=== PATIENT | male | born 1960 | race African-American/Black ===

== ENCOUNTER 2020-09-26 10:51 | Emergency (ER) | payer SELFPAY ==
[2020-09-26 11:16] LABS: #Basophils 0.1 thou/uL (0.0-0.2); #Eosinphils 0.2 thou/uL (0.0-0.7); #Lymphocytes 1.3 thou/uL (1.20-3.40); #Monocytes 0.4 thou/uL (0.11-0.59); #Neutrophils 3.4 thou/uL (1.40-6.50); %Basophils 1.4 % (0.0-1.0); %Eosinophils 4.5 % (0.0-10.0); %Lymphocytes 24.1 % (21.0-51.0); %Monocytes 7.3 % (0.0-10.0); %Neutrophils 62.7 % (42.0-75.0); Hemoglobin 15.7 g/dL (14.0-18.0); Mean Corpuscular HGB CONC 33.2 g/dL (32.0-36.0); Mean Corpuscular Hemoglobin 31.7 pg (27.0-31.0); Mean Corpuscular Volume 95.5 fL (78.0-98.0); Mean Platelet Volume 8.6 fL (7.4-10.4); Platelet Count 207 thou/uL (130-400); RBC Distribution Width 12.3 % (11.5-14.5); Red Blood Cell (RBC) Count 4.95 mill/uL (4.70-6.10); White Blood Cell (WBC) Count 5.3 thou/uL (4.8-10.8)
[2020-09-26 11:33] LABS: ALT (SGPT) 22 U/L (8-55); AST (SGOT) 28 U/L (5-34); Albumin 4.1 g/dL (3.4-4.8); Alkaline Phosphatase 102 U/L (40-110); Anion Gap 17 mmol/L (10-20); BUN (Urea Nitrogen) 14 mg/dL (8.4-25.7); Bilirubin, Total 0.5 mg/dL (0.2-1.2); Calc. Creatinine Clearance 0 mL/min (70-130); Carbon Dioxide 22 mmol/L (23-31); Chloride 105 mmol/L (98-107); Globulin 3.6 g/dL (2.4-3.5); Glucose 105 mg/dL (80-115); Lipase 23 U/L (8-78); Protein, Total 7.7 g/dL (5.8-8.1); Sodium 140 mmol/L (136-145)
[2020-09-26] MEDS ORDERED: Aspirin Chewable 81 MG TAB ONE (12:36)
--- NOTE | 2020-09-26 13:30 | RAD ---
PORTABLE CHEST: Date: 09/26/2020 Comparison made with the 08/14/2019 study. The heart is normal in size. There is no vascular congestion or edema. No effusions. Some minor linea r streaking over the left hemidiaphragm is probably subsegmental atelectasis. The lungs are otherwise clear. IMPRESSION: No acute findings. POS: HOME
--- NOTE | 2020-09-26 13:34 | CT ---
CT OF THE BRAIN WITHOUT CONTRAST: DATE: 09/26/2020. COMPARISON: Comparison is made with the prior study of 03/02/2015. FINDINGS: The ventricles are normal in size with no shift. No intracranial bleeding, mass, edema, or sign of a cute stroke was found. There is mucosal thickening in the left maxillary sinus. The other visible p aranasal sinuses and mastoid air cells are clear. The skull was normal in appearance. IMPRESSION: 1. No acute intracranial findings. 2. Chronic left maxillary sinusitis. Preliminary called to Dr. Ramirez at 1132 on 09/26/2020. CODE CR POS: HOME
== END 2020-09-26 13:27 | disposition short-term general hospital (02) ==
LOC: BURERS 10:51
DX: I20.0 Unstable angina (principal); G45.9 Transient cerebral ischemic attack, unspecified; Z79.899 Other long term (current) drug therapy; I10 Essential (primary) hypertension; F17.210 Nicotine dependence, cigarettes, uncomplicated
CPT/HCPCS: 70450; 71045; 80053; 83690; 84484; 85025; 85379; 93005